=== PATIENT | female | born 1970 | race Two or more races ===

== ENCOUNTER 2019-11-20 17:03 | Emergency (ER) | payer MEDICAID ==
[~2019-11-20] VITALS: Ht 170.2 cm; Wt 61.2 kg
[2019-11-20] MEDS ORDERED: HYDROCODONE/APAP 5/325MG 1 EACH TABLET ONE (17:24)
[2019-11-20] MEDS ORDERED: AMOX/CLAVULANATE 875 MG TABLET ONE (17:25)
[2019-11-20 17:30] VITALS: BP 125/81
[2019-11-20] MEDS ORDERED: AMOX/CLAVULANATE 875 MG TABLET PO ONE (17:30)
[2019-11-20] MEDS ORDERED: HYDROCODONE/APAP 5/325MG 1 EACH TABLET PO ONE (17:30)
--- NOTE | 2019-11-20 17:34 | NUR ---
Patient discharged to home in stable condition. Written and verbal after care instructions given. Patient verbalizes understanding of instruction.
== END 2019-11-20 17:33 | disposition home or self-care (01) ==
LOC: ER 17:03 → EDSEX 17:03 → ER 17:33
DX: K08.89 Other specified disorders of teeth and supporting structures (principal)